=== PATIENT | male | born 1965 | race American Indian/Alaskan Native ===

== ENCOUNTER 2019-01-11 16:16 | Emergency (ER) | payer BC ==
[2019-01-11 16:22] VITALS: BMI 40.4
--- NOTE | 2019-01-11 17:19 | C.PDOC ---
History Of Present Illness 53 y/o male presents to the ED for wound check visit. Patient reports he had a groin abscess and is s/p I&D yesterday by Dr. Hoyt. States he was instructed to come to the ED to having packing removed. Patient has no complaints. Denies fever. Time Seen by Provider: 01/11/19 16:48 Chief Complaint (Nursing): Wound Check History Per: Patient History/Exam Limitations: no limitations Onset/Duration Of Symptoms: Days Ago (1) Current Symptoms Are (Timing): Still Present Past Medical History Reviewed: Historical Data, Nursing Documentation, Vital Signs Vital Signs: Last Vital Signs Temp 98.0 F 01/11/19 16:22 Pulse 86 01/11/19 16:22 Resp 20 01/11/19 16:22 BP 131/76 01/11/19 16:22 Pulse Ox 97 01/11/19 16:22 - Medical History PMH: HTN Denies: Chronic Kidney Disease Family History: States: No Known Family Hx - Social History Hx Alcohol Use: No Hx Substance Use: No Review Of Systems Constitutional: Negative for: Fever, Chills Respiratory: Negative for: Shortness of Breath Gastrointestinal: Negative for: Abdominal Pain Skin: Positive for: Lesions (healing I&D wound). Negative for: Rash Neurological: Negative for: Weakness Physical Exam - Physical Exam Appears: Well, Non-toxic, No Acute Distress Skin: Warm, No Rash, Other (Healing wound to right inguinal area, packing in place) Head: Atraumatic, Normacephalic Eye(s): bilateral: Normal Inspection Neck: Normal ROM Chest: Symmetrical Respiratory: No Accessory Muscle Use, Other (Speaking in complete sentences) Extremity: Bilateral: Atraumatic, Normal ROM (x 4) Neurological/Psych: Oriented x3, Normal Speech ED Course And Treatment O2 Sat by Pulse Oximetry: 97 (RA) Pulse Ox Interpretation: Normal Medical Decision Making Medical Decision Making: The packing was removed by me. Sterile dressing was applied. Paged surgeon Dr. Hoyt. 17:[address] Hoyt, who would like surgical garment inspector to evaluate the patient and apply new dressing. 17:53 Paged surgical garment inspector, made aware of Dr. Hoyts request. Resident is at [facility] and will come to evaluate patient. Packing changed. Disposition - Disposition Referrals: Price Hoyt MD [Staff Provider] - Disposition: HOME/ ROUTINE Disposition Time: 18:31 Condition: GOOD Additional Instructions: TAKE ANTIBIOTICS UNTIL COMPLETED. Follow up with the medical doctor within 1-2 days. Return if worsened. Instructions: Boil (DC) Forms: [facility] (Georgian) - Clinical Impression Clinical Impression: Wound check, abscess - PA / SAMPLE SUPERVISOR / Resident Statement MD/DO has reviewed & agrees with the documentation as recorded. - Scribe Statement The provider has reviewed the documentation as recorded by the Scribe Carole Carranza All medical record entries made by the Scribe were at my direction and personally dictated by me. I have reviewed the chart and agree that the record accurately reflects my personal performance of the history, physical exam, medi nika decision making, and the department course for this patient. I have also personally directed, reviewed, and agree with the discharge instructions and disposition.
[2019-01-11 20:08] VITALS: BP 120/80; PULSE 80; RESP 14; TEMP 98
[2019-01-15 03:31] VITALS: O2SAT 97
== END 2019-01-11 20:08 | disposition home or self-care (01) ==
LOC: C.ER 16:16
DX: Z48.00 Encounter for change or removal of nonsurgical wound dressing (principal); L02.214 Cutaneous abscess of groin